=== PATIENT | female | born 1995 | race Caucasian/White ===

== ENCOUNTER 2017-02-13 08:19 | Emergency (ER) | payer SELFPAY ==
--- NOTE | 2017-02-13 08:35 | EDM.PDOC ---
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 By her dates she would be 6 weeks 1 day gestational age if (again please see below note). She has no gynecologic history or surgical history. She has had nausea but only one episode of vomiting and she's been tolerating fluids. She has no upper abdominal pain diarrhea fevers chills chest pain or shortness of breath. She has no urinary symptoms and has no STD history. She says she is having lower abdominal cramping that started this morning and she is concerned. She has not established herself with an OB M.D. Review of systems: As per history of present illness and below otherwise all systems reviewed and negative. Past medical history: As per history of present illness and as reviewed below otherwise noncontributory. Surgical history: As per history of present illness and as reviewed below otherwise noncontributory. Social history: No reported history of drug or alcohol abuse. Family history: As per history of present illness and as reviewed below otherwise noncontributory. Physical exam: Gen.: Well-developed well-nourished female who is somewhat tearful in the room but is nontoxic and vital signs were noted by me. HEENT: Atraumatic, normocephalic, , negative for conjunctival pallor or scleral icterus, mucous membranes moist, throat clear, neck supple, nontender, trachea midline. Lungs: Clear to auscultation, breath sounds equal bilaterally, chest nontender. Heart: S1S2, regular rate and rhythm no overt murmurs Abdomen: Soft, nondistended, nontender. Negative for masses or hepatosplenomegaly. Negative for costovertebral tenderness. Pelvis: Stable nontender. Genitourinary: External genitalia are within normal limits, there is a small amount of darkish colored blood in the vault without tissue and the cervix is visually closed. Uterus is bulky and somewhat tender on palpation and appropriate for gestational age and there is no adnexal tenderness or masses appreciated. Exam was somewhat difficult as the patient was very uncomfortable and had difficulty relaxing. Rectal: Deferred. Extremities: Atraumatic, negative for cords or calf pain. Neurovascular unremarkable. Neuro: Awake, alert, oriented. Cranial nerves II through XII unremarkable. Cerebellum unremarkable. Motor and sensory unremarkable throughout. Exam nonfocal. Diagnostics: CBC serum quantitative hCG ABO Rh UA urine culture if indicated ultrasound Therapeutics: I discussed with the patient her serum quantitative hCG which is less than 1.2 and the negative ultrasound. I informed her that she is not and that I can explain her positive urine test that she had at home yesterday nor her complaints of the nausea and cramping. She is confused because she feels that she has had all the symptoms of and she is not quite comprehending that the serum level of 0 indicates no . In my research on the computer I saw the same patient in 2014 with a similar presentation and a negative blood test at that time. I advised her that this. Will be heavier than usual and that she should follow up with gynecology to discuss all of her concerns and for reevaluation. Impression: Vaginal bleeding, menstrual cycle irregularity Definitive disposition and diagnosis as appropriate pending reevaluation and review of above. Bilateral Lower Abdominal Pain Score (Numeric/FACES): 8 - Related Data Allergies Allergy/AdvReac Type Severity Reaction Status Date / Time coconut Allergy Hives Verified 02/13/17 08:41 Home Meds: Home Meds Albuterol [Ventolin HFA] 2 puff INH Q4H PRN 02/12/15 [History] Past Medical History - Past Health History Medical/Surgical History: Denies Medical/Surgical History HEENT History: Reports: None Other HEENT History: sore feeling on the throat from 3 days ago Cardiovascular History: Reports: None Respiratory History: Reports: None Gastrointestinal History: Reports: None Genitourinary History: Reports: None REVENUE STAMPER History: Reports: None Musculoskeletal History: Reports: None Neurological History: Reports: None Psychiatric History: Reports: None Endocrine/Metabolic History: Reports: None Hematologic History: Reports: None Immunologic History: Reports: None Oncologic (Cancer) History: Reports: None Dermatologic History: Reports: None - Infectious Disease History Infectious Disease History: Reports: None - Past Surgical History HEENT Surgical History: Reports: None Social & Family History - Family History Family Medical History: Noncontributory - Tobacco Use Smoking Status *Q: Current Every Day Smoker Years of Tobacco use: 4 Packs/Tins Daily: 0.5 Second Hand Smoke Exposure: No - Alcohol Use Days Per Week of Alcohol Use: 0 Number of Drinks Per Day: 2 Total Drinks Per Week: 0 - Recreational Drug Use Recreational Drug Use: No ED ROS GENERAL - Review of Systems Review Of Systems: ROS reveals no pertinent complaints other than HPI. ED EXAM, GENERAL - Physical Exam Exam: See Below (See dictation) Course - Vital Signs Last Recorded V/S: Last Vital Signs Temp 36.1 C 02/13/17 09:54 Pulse 64 02/13/17 09:54 Resp 18 02/13/17 09:54 BP 99/63 02/13/17 09:54 Pulse Ox 98 02/13/17 09:54 - Orders/Labs/Meds Orders: Active Orders 24 hr Category Date Time Status Transvaginal Non OB [US] Stat Exams 02/13/17 09:26 Taken Labs: Laboratory Tests 02/13/17 02/13/17 02/13/17 Range/Units 08:42 08:42 08:42 WBC 7.91 (4.0-11.0) K/uL RBC 4.42 (4.30-5.90) M/uL Hgb 14.3 (12.0-16.0) g/dL Hct 42.8 (36.0-46.0) % MCV 96.8 (80.0-98.0) fL MCH 32.4 H (27.0-32.0) pg MCHC 33.4 (31.0-37.0) g/dL RDW Std Deviation 45.7 (28.0-62.0) fl RDW Coeff of Dereck 13 (11.0-15.0) % Plt Count 211 (150-400) K/uL MPV 10.90 (7.40-12.00) fL Neut % (Auto) 53.2 (48.0-80.0) % Lymph % (Auto) 37.4 (16.0-40.0) % [place] % (Auto) 7.7 (0.0-15.0) % Eos % (Auto) 1.4 (0.0-7.0) % Baso % (Auto) 0.3 (0.0-1.5) % Neut # (Auto) 4.2 (1.4-5.7) K/uL Lymph # (Auto) 3.0 H (0.6-2.4) K/uL [place] # (Auto) 0.6 (0.0-0.8) K/uL Eos # (Auto) 0.1 (0.0-0.7) K/uL Baso # (Auto) 0.0 (0.0-0.1) K/uL Nucleated RBC % 0.0 /100WBC Nucleated RBCs # 0 K/uL HCG, Quant < 1.2 mIU/mL Urine Color Urine Appearance Urine pH (5.0-8.0) Ur Specific [place] (1.001-1.035) Urine Protein (NEGATIVE) mg/dL Urine Glucose (UA) (NEGATIVE) mg/dL Urine Ketones (NEGATIVE) mg/dL Urine Occult Blood (NEGATIVE) Urine Nitrite (NEGATIVE) Urine Bilirubin (NEGATIVE) Urine Urobilinogen (<2.0) EU/dL Ur Leukocyte Esterase (NEGATIVE) Urine RBC (0-2/HPF) Urine WBC (0-5/HPF) Ur Epithelial Cells (NONE-FEW) Urine Bacteria (NEGATIVE) Blood Type B POSITIVE 02/13/17 Range/Units 08:46 WBC (4.0-11.0) K/uL RBC (4.30-5.90) M/uL Hgb (12.0-16.0) g/dL Hct (36.0-46.0) % MCV (80.0-98.0) fL MCH (27.0-32.0) pg MCHC (31.0-37.0) g/dL RDW Std Deviation (28.0-62.0) fl RDW Coeff of Dereck (11.0-15.0) % Plt Count (150-400) K/uL MPV (7.40-12.00) fL Neut % (Auto) (48.0-80.0) % Lymph % (Auto) (16.0-40.0) % [place] % (Auto) (0.0-15.0) % Eos % (Auto) (0.0-7.0) % Baso % (Auto) (0.0-1.5) % Neut # (Auto) (1.4-5.7) K/uL Lymph # (Auto) (0.6-2.4) K/uL [place] # (Auto) (0.0-0.8) K/uL Eos # (Auto) (0.0-0.7) K/uL Baso # (Auto) (0.0-0.1) K/uL Nucleated RBC % /100WBC Nucleated RBCs # K/uL HCG, Quant mIU/mL Urine Color YELLOW Urine Appearance CLEAR Urine pH 6.0 (5.0-8.0) Ur Specific [place] >= 1.030 (1.001-1.035) Urine Protein NEGATIVE (NEGATIVE) mg/dL Urine Glucose (UA) NEGATIVE (NEGATIVE) mg/dL Urine Ketones NEGATIVE (NEGATIVE) mg/dL Urine Occult Blood LARGE H (NEGATIVE) Urine Nitrite NEGATIVE (NEGATIVE) Urine Bilirubin NEGATIVE (NEGATIVE) Urine Urobilinogen 0.2 (<2.0) EU/dL Ur Leukocyte Esterase NEGATIVE (NEGATIVE) Urine RBC 8-10 (0-2/HPF) Urine WBC 0-1 (0-5/HPF) Ur Epithelial Cells RARE (NONE-FEW) Urine Bacteria NOT SEEN (NEGATIVE) Blood Type Departure - Departure Time of Disposition: 10:14 Disposition: Home, Self-Care 01 Condition: Good Clinical Impression: Vaginal bleeding, Menstrual cycle problem - Discharge Information Forms: ED Department Discharge Additional Instructions: The following information is given to patients seen in the emergency department who are being discharged to home. This information is to outline your options for follow-up care. We provide all patients seen in our emergency department with a follow-up referral. The need for follow-up, as well as the timing and circumstances, are variable depending upon the specifics of your emergency department visit. If you don't have a primary care physician on staff, we will provide you with a referral. We always advise you to contact your personal physician following an emergency department visit to inform them of the circumstance of the visit and for follow-up with them and/or the need for any referrals to a consulting specialist. The emergency department will also refer you to a specialist when appropriate. This referral assures that you have the opportunity for followup care with a specialist. All of these measure are taken in an effort to provide you with optimal care, which includes your followup. Under all circumstances we always encourage you to contact your private physician who remains a resource for coordinating your care. When calling for followup care, please make the office aware that this follow-up is from your recent emergency room visit. If for any reason you are refused follow-up, please contact the [facility] emergency department at and ask to speak to the emergency department charge nurse. [facility] [address] [facility] [address] [place] [address] Push hydration and rest. Expect that this menstrual cycle will be heavier than others because you are 2 weeks late. Please call and contact the women's health clinic tomorrow for follow-up appointment this week as we discussed and return to ER as needed and as discussed - My Orders Last 24 Hours: My Active Orders 02/13/17 09:26 Transvaginal Non OB [US] Stat - Assessment/Plan Last 24 Hours: My Active Orders 02/13/17 09:26 Transvaginal Non OB [US] Stat
[2017-02-13 10:27] VITALS: BP 105/63
--- NOTE | 2017-02-14 14:39 | US ---
EXAM DATE: 02/13/17 PATIENT'S AGE: 21 Patient: PATRICIA RODRIGUEZ Facility: [place], [place] Site . Site : 1995 Study: US Pelvis [id number]/6/2017 9:57:41 AM Ordering Physician: Ramesh Thao Final Report: HISTORY: Cramping and bleeding. Technique: Transvaginal pelvic ultrasound with color spectral Doppler. Findings: The uterus measures 3.4 x 5.2 x 7.9 cm. The myometrium is homogeneous. The endometrium measures 6 mm. No intrauterine gestational sac is seen. The right ovary measures approximately 2.2 x 2.3 x 3.4 cm. The left ovary measures 2.3 x 1.4 x 3.2 cm. Small follicles are seen in each ovary. Slightly hyperechoic nodule is seen in the right ovary measuring 0.9 x 1.2 cm possibly hemorrhagic cyst. A trace of fluid free fluid is seen. Impression: 1. No intrauterine gestational sac is seen. Clinical correlation with serial HCG levels as necessary is recommended. 2. Probable small hemorrhagic cyst in the right ovary. Dictated by Antonio Deng MD @ Feb 13 2017 10:02AM (Electronic Signature) Report Signed by Proxy. JASSI
== END 2017-02-13 10:24 | disposition home or self-care (01) ==
LOC: MW.ED 08:19
DX: N93.9 Abnormal uterine and vaginal bleeding, unspecified (principal); N92.6 Irregular menstruation, unspecified; F17.210 Nicotine dependence, cigarettes, uncomplicated
CPT/HCPCS: 36415; 76830; 76830-26; 81001; 84702; 85025; 86900; 86901; 99283; 99284-25

== ENCOUNTER 2018-09-03 22:32 | Inpatient (IN) | payer MEDICAID ==
[2018-09-03] MEDS ORDERED: Ondansetron 4 MG/2 ML SDV IVPUSH PRN (22:57)
[2018-09-03] MEDS ORDERED: Nalbuphine 10 MG/1 ML Vial IVPUSH PRN (22:57)
[2018-09-03] MEDS ORDERED: Methylergonovine 0.2 MG/1 ML Amp IM PRN (22:57)
[2018-09-03] MEDS ORDERED: Tranexamic Acid 1,000 MG in Sodium Chloride 0.9% 100 ML IV PRN (22:57)
[2018-09-03] MEDS ORDERED: Water For Irrigation,Sterile 1,000 ML Container IRR PRN (22:57)
[2018-09-03] MEDS ORDERED: Misoprostol 200 MCG Tab PO PRN (22:57)
[2018-09-03] MEDS ORDERED: Butorphanol 1 MG/ML SDV IVPUSH PRN (22:57)
[2018-09-03] MEDS ORDERED: Sodium Chloride 0.9% 2.5 ML Syringe FLUSH PRN (22:57)
[2018-09-03] MEDS ORDERED: Sodium Chloride 0.9% 10 ML Syringe FLUSH PRN (22:57)
[2018-09-03] MEDS ORDERED: Carboprost Tromethamine 250 MCG/1 ML Amp IM PRN (22:57)
[2018-09-03] MEDS ORDERED: Lidocaine 1% 50 ML MDV INJECT PRN (22:57)
[2018-09-03] MEDS ORDERED: Lactated Ringers 1,000 ML IV SCH ×2 (23:00)
[2018-09-03] MEDS ORDERED: Oxytocin/0.9 % Sodium Chloride 30 UNIT/500 ML BAG IV SCH (23:00)
[2018-09-03] MEDS ORDERED: Morphine 10 MG/ML Syringe ONE (23:37)
[2018-09-03] MEDS: Morphine 10 MG/ML Syringe IVPUSH PRN (23:39)
--- NOTE | 2018-09-03 23:39 | PCM.LDHP ---
L&D History of Present Illness - General Date of Service: 09/03/18 Admit Problem/Dx: Patient Status Order with Admit Dx/Problem 09/03/18 22:40 Patient Status [ADT] Routine 09/03/18 22:58 Patient Status [ADT] Routine Admission Diagnosis/Problem Admission Diagnosis/Problem - planned Source of Information: Patient History Limitations: Reports: No Limitations - History of Present Illness Improves with: Reports: None Worsens with: Reports: None Associated Symptoms: Reports: N - Related Data Allergies/Adverse Reactions: Allergies Allergy/AdvReac Type Severity Reaction Status Date / Time coconut Allergy Hives Verified 02/08/18 15:37 Home Medications: Home Meds Albuterol [Ventolin HFA] 2 puff INH Q4H PRN 02/12/15 [History] Past Medical History - Past Health History Medical/Surgical History: Denies Medical/Surgical History HEENT History: Reports: None Other HEENT History: sore feeling on the throat from 3 days ago Cardiovascular History: Reports: None Respiratory History: Reports: None Gastrointestinal History: Reports: None Genitourinary History: Reports: None SPOT WASHER History: Reports: None Musculoskeletal History: Reports: None Neurological History: Reports: None Psychiatric History: Reports: None Endocrine/Metabolic History: Reports: None Hematologic History: Reports: None Immunologic History: Reports: None Oncologic (Cancer) History: Reports: None Dermatologic History: Reports: None - Infectious Disease History Infectious Disease History: Reports: None - Past Surgical History HEENT Surgical History: Reports: None Social & Family History - Family History Family Medical History: Noncontributory - Caffeine Use Caffeine Use: Reports: Coffee, Energy Drinks, Soda, Tea H&P Review of Systems - Review of Systems: Review Of Systems: See Below General: Reports: No Symptoms HEENT: Reports: No Symptoms Pulmonary: Reports: No Symptoms Cardiovascular: Reports: No Symptoms Gastrointestinal: Reports: No Symptoms Genitourinary: Reports: No Symptoms Musculoskeletal: Reports: No Symptoms Skin: Reports: No Symptoms Psychiatric: Reports: No Symptoms Neurological: Reports: No Symptoms Hematologic/Lymphatic: Reports: No Symptoms Immunologic: Reports: No Symptoms L&D Exam - Exam Exam: See Below - OB Specific Fundal Height In cm: 23 Contraction Intensity: Moderate Movement: Active - Olivier Score Olivier Score Cervix Position: Anterior Olivier Score Consistency: Soft Olivier Score Effacement: >80% Olivier Score Dilation: > 5 cm Olivier Score 's Station: +1, +2 Olivier Score Total: 13 - Exam General: Alert, Oriented HEENT: PERRLA, Conjunctiva Clear, EACs Clear, EOMI, Hearing Intact, Mucosa Moist & [place], Nares Patent, Normal Nasal Septum, Posterior Pharynx Clear, TMs Clear Neck: Supple, Trachea Midline Lungs: Clear to Auscultation, Normal Respiratory Effort Cardiovascular: Regular Rate, Regular Rhythm GI/Abdominal Exam: Normal Bowel Sounds, Soft, Non-Tender, No Organomegaly, No Distention, No Abnormal Bruit, No Mass, Pelvis Stable Rectal Exam: Normal Exam, Normal Rectal Tone Genitourinary: Normal external exam, Normal bimanual exam, Normal speculum exam Back Exam: Normal Inspection, Full Range of Motion Extremities: Normal Inspection, Normal Range of Motion, Non-Tender, No Pedal Edema, Normal Capillary Refill Skin: Warm, Dry, Intact Neurological: Cranial Nerves Intact, Reflexes Equal Bilateral Psychiatric: Alert, Normal Affect, Normal Mood - Patient Data Lab Results Last 24 hrs: Laboratory Results - last 24 hr 09/03/18 Range/Units 23:11 WBC 14.54 H (4.0-11.0) K/uL RBC 3.68 L (4.30-5.90) M/uL Hgb 11.9 L (12.0-16.0) g/dL Hct 34.1 L (36.0-46.0) % MCV 92.7 (80.0-98.0) fL MCH 32.3 H (27.0-32.0) pg MCHC 34.9 (31.0-37.0) g/dL RDW Std Deviation 43.0 (28.0-62.0) fl RDW Coeff of Dereck 13 (11.0-15.0) % Plt Count 152 (150-400) K/uL MPV 11.70 (7.40-12.00) fL Nucleated RBC % 0.0 /100WBC Nucleated RBCs # 0 K/uL Result Diagrams: 09/03/18 23:11 Problem List Initiated/Reviewed/Updated: Yes Orders Last 24hrs: Active Orders 24 hr Category Date Time Status Patient Status [ADT] Routine ADT 09/03/18 22:58 Active Heart Tones [RC] CONTINUOUS Care 09/03/18 22:58 Active Non Stress Test [RC] PER UNIT ROUTINE Care 09/03/18 22:48 Active Non Stress Test [RC] PER UNIT ROUTINE Care 09/03/18 22:58 Active May Shower [RC] ASDIRECTED Care 09/03/18 22:58 Active Notify Provider [RC] PRN Care 09/03/18 22:58 Active Up ad Marian [RC] ASDIRECTED Care 09/03/18 22:48 Active Up ad Marian [RC] ASDIRECTED Care 09/03/18 22:58 Active Vaginal Exam [RC] Click to Edit Care 09/03/18 22:48 Active Vaginal Exam [RC] PRN Care 09/03/18 22:58 Active Vital Signs [RC] PER UNIT ROUTINE Care 09/03/18 22:48 Active Regular Diet [DIET] Diet 09/03/18 Breakfast Active TYPE AND SCREEN [BBK] Stat Lab 09/03/18 23:11 Received Butorphanol [Stadol] Med 09/03/18 22:57 Active 1 mg IVPUSH Q1H PRN Carboprost Tromethamine [Hemabate DS] Med 09/03/18 22:57 Active 250 mcg IM ASDIRECTED PRN Lactated Ringers [Ringers, Lactated] 1,000 ml Med 09/03/18 23:00 Active IV ASDIRECTED Lactated Ringers [Ringers, Lactated] 1,000 ml Med 09/03/18 23:00 Active IV ASDIRECTED Lidocaine 1% [Xylocaine 1%] Med 09/03/18 22:57 Active 50 ml INJECT ONETIME PRN Methylergonovine [Methergine] Med 09/03/18 22:57 Active 0.2 mg IM ASDIRECTED PRN Morphine Med 09/03/18 23:32 Ordered 4 - 8 mg IVPUSH Q2H PRN Nalbuphine [Nubain] Med 09/03/18 22:57 Active 10 mg IVPUSH Q1H PRN Ondansetron [Zofran] Med 09/03/18 22:57 Active 4 mg IVPUSH Q6H PRN Oxytocin/0.9 % Sodium Chloride [Oxytocin 30 Unit/500 ML Med 09/03/18 23:00 Active -NS] 30 unit in 500 ml IV TITRATE Sodium Chloride 0.9% [Saline Flush] Med 09/03/18 22:57 Active 10 ml FLUSH ASDIRECTED PRN Sodium Chloride 0.9% [Saline Flush] Med 09/03/18 22:57 Active 2.5 ml FLUSH ASDIRECTED PRN Tranexamic Acid [Cyklokapron] 1,000 mg Med 09/03/18 22:57 Active Sodium Chloride 0.9% [Normal Saline] 100 ml IV ONETIME Water For Irrigation,Sterile [Sterile Water for Med 09/03/18 22:57 Active Irrigation] 1,000 ml IRR ASDIRECTED PRN miSOPROStol [Cytotec] Med 09/03/18 22:57 Active 200 mcg PO ONETIME PRN Scalp Electrode [WOMSER] Per Unit Routine Oth 09/03/18 22:58 Ordered Peripheral IV Insertion Adult [OM.PC] Routine Oth 09/03/18 22:57 Ordered Peripheral IV Insertion Adult [OM.PC] Routine Oth 09/03/18 22:58 Ordered Resuscitation Status Routine Resus Stat 09/03/18 22:48 Ordered Medication Orders Butorphanol Tartrate (Stadol) 1 mg IVPUSH Q1H PRN PRN Reason: Pain Carboprost Tromethamine (Hemabate Ds) 250 mcg IM ASDIRECTED PRN PRN Reason: Post Hemorrhage Tranexamic Acid 1,000 mg/ (Sodium Chloride) 110 mls @ 660 mls/hr IV ONETIME PRN PRN Reason: Bleeding Lactated Ringer's (Ringers, Lactated) 1,000 mls @ 150 mls/hr IV ASDIRECTED ERIK Oxytocin/Sodium Chloride (Oxytocin 30 Unit/500 Ml-Ns) 30 unit in 500 mls @ 999 mls/hr IV TITRATE ERIK Lactated Ringer's (Ringers, Lactated) 1,000 mls @ 125 mls/hr IV ASDIRECTED ERIK Lidocaine HCl (Xylocaine 1%) 50 ml INJECT ONETIME PRN PRN Reason: Laceration repair Methylergonovine Maleate (Methergine) 0.2 mg IM ASDIRECTED PRN PRN Reason: Post Hemorrhage Misoprostol (Cytotec) 200 mcg PO ONETIME PRN PRN Reason: Post Hemorrhage Morphine Sulfate (Morphine) 4 - 8 mg IVPUSH Q2H PRN PRN Reason: Pain Nalbuphine HCl (Nubain) 10 mg IVPUSH Q1H PRN PRN Reason: Pain (severe 7-10) Ondansetron HCl (Zofran) 4 mg IVPUSH Q6H PRN PRN Reason: Nausea/Vomiting Sodium Chloride (Saline Flush) 10 ml FLUSH ASDIRECTED PRN PRN Reason: Keep Vein Open Sodium Chloride (Saline Flush) 2.5 ml FLUSH ASDIRECTED PRN PRN Reason: Keep Vein Open Sterile Water (Sterile Water For Irrigation) 1,000 ml IRR ASDIRECTED PRN PRN Reason: delivery Assessment/Plan Comment:: Pt fetus have multiple congental anamoles with Hydropres. in active labor. ther will be necessitation for the fetus.
[2018-09-04] MEDS: Morphine 10 MG/ML Syringe IVPUSH PRN (01:47)
[2018-09-04] MEDS ORDERED: Lanolin 100% Cream 7 GM Tube TOP PRN (05:04)
[2018-09-04] MEDS ORDERED: Witch Hazel Medicated Pads 40/Jar TOP PRN (05:04)
[2018-09-04] MEDS ORDERED: Bisacodyl 10 MG Supp RECTAL PRN (05:04)
[2018-09-04] MEDS ORDERED: Acetaminophen 500 MG Tab PO PRN ×2 (05:04)
[2018-09-04] MEDS ORDERED: Benzocaine/Menthol 20%-0.5% Spray 78 GM Cannister TOP PRN (05:04)
[2018-09-04] MEDS ORDERED: Ibuprofen 400 MG Tab PO PRN (05:04)
[2018-09-04] MEDS ORDERED: Ibuprofen 800 MG Tab PO PRN (05:04)
[2018-09-04] MEDS ORDERED: Docusate Sodium 100 MG Cap PO PRN (05:04)
[2018-09-04] MEDS ORDERED: oxyCODONE 5 MG Tab PO PRN (05:04)
--- NOTE | 2018-09-04 09:06 | PCM.PNPP ---
- General Info Date of Service: 09/04/18 Functional Status: Reports: Pain Controlled - Review of Systems General: Reports: No Symptoms HEENT: Reports: No Symptoms Pulmonary: Reports: No Symptoms Cardiovascular: Reports: No Symptoms Gastrointestinal: Reports: No Symptoms Genitourinary: Reports: No Symptoms Musculoskeletal: Reports: No Symptoms Skin: Reports: No Symptoms Neurological: Reports: No Symptoms Psychiatric: Reports: No Symptoms - General Info Date of Service: 09/04/18 - Patient Data Weight - Most Recent: 58.967 kg Lab Results - Last 24 Hours: Laboratory Results - last 24 hr 09/03/18 09/03/18 Range/Units 23:11 23:11 WBC 14.54 H (4.0-11.0) K/uL RBC 3.68 L (4.30-5.90) M/uL Hgb 11.9 L (12.0-16.0) g/dL Hct 34.1 L (36.0-46.0) % MCV 92.7 (80.0-98.0) fL MCH 32.3 H (27.0-32.0) pg MCHC 34.9 (31.0-37.0) g/dL RDW Std Deviation 43.0 (28.0-62.0) fl RDW Coeff of Dereck 13 (11.0-15.0) % Plt Count 152 (150-400) K/uL MPV 11.70 (7.40-12.00) fL Nucleated RBC % 0.0 /100WBC Nucleated RBCs # 0 K/uL Blood Type B POSITIVE Antibody Screen NEGATIVE Med Orders - Current: Current Medications Acetaminophen (Tylenol Extra Strength) 500 mg PO Q4H PRN PRN Reason: Pain Acetaminophen (Tylenol Extra Strength) 1,000 mg PO Q4H PRN PRN Reason: Pain Last Admin: 09/04/18 05:19 Dose: 1,000 mg Benzocaine/Menthol (Dermoplast Pain Relief 20%-0.5% [place]) 78 gm TOP ASDIRECTED PRN PRN Reason: Perineal Comfort Measure Bisacodyl (Dulcolax) 10 mg RECTAL ONETIME PRN PRN Reason: Constipation Butorphanol Tartrate (Stadol) 1 mg IVPUSH Q1H PRN PRN Reason: Pain Carboprost Tromethamine (Hemabate Ds) 250 mcg IM ASDIRECTED PRN PRN Reason: Post Hemorrhage Docusate Sodium (Colace) 100 mg PO BID PRN PRN Reason: Constipation Emollient Ointment (Lansinoh Hpa) 0 gm TOP ASDIRECTED PRN PRN Reason: Sore Nipples Tranexamic Acid 1,000 mg/ (Sodium Chloride) 110 mls @ 660 mls/hr IV ONETIME PRN PRN Reason: Bleeding Lactated Ringer's (Ringers, Lactated) 1,000 mls @ 150 mls/hr IV ASDIRECTED ERIK Oxytocin/Sodium Chloride (Oxytocin 30 Unit/500 Ml-Ns) 30 unit in 500 mls @ 999 mls/hr IV TITRATE ERIK Last Admin: 09/04/18 01:44 Dose: 999 mls/hr Lactated Ringer's (Ringers, Lactated) 1,000 mls @ 125 mls/hr IV ASDIRECTED ERIK Ibuprofen (Motrin) 400 mg PO Q4H PRN PRN Reason: Pain Ibuprofen (Motrin) 800 mg PO Q6H PRN PRN Reason: Pain Lidocaine HCl (Xylocaine 1%) 50 ml INJECT ONETIME PRN PRN Reason: Laceration repair Methylergonovine Maleate (Methergine) 0.2 mg IM ASDIRECTED PRN PRN Reason: Post Hemorrhage Misoprostol (Cytotec) 200 mcg PO ONETIME PRN PRN Reason: Post Hemorrhage Morphine Sulfate (Morphine) 4 - 8 mg IVPUSH Q2H PRN PRN Reason: Pain Last Admin: 09/04/18 01:47 Dose: 5 mg Nalbuphine HCl (Nubain) 10 mg IVPUSH Q1H PRN PRN Reason: Pain (severe 7-10) Last Admin: 09/03/18 23:19 Dose: 10 mg Ondansetron HCl (Zofran) 4 mg IVPUSH Q6H PRN PRN Reason: Nausea/Vomiting Oxycodone HCl (Oxycodone) 5 mg PO Q2H PRN PRN Reason: Pain Last Admin: 09/04/18 05:20 Dose: 5 mg Sodium Chloride (Saline Flush) 10 ml FLUSH ASDIRECTED PRN PRN Reason: Keep Vein Open Sodium Chloride (Saline Flush) 2.5 ml FLUSH ASDIRECTED PRN PRN Reason: Keep Vein Open Sterile Water (Sterile Water For Irrigation) 1,000 ml IRR ASDIRECTED PRN PRN Reason: delivery Roberto Zavala ([place]) 1 pad TOP ASDIRECTED PRN PRN Reason: comfort care Discontinued Medications Morphine Sulfate (Morphine) Confirm Administered Dose 10 mg .ROUTE .STK-MED ONE Stop: 09/03/18 23:38 - Interaction Disposition, : Not Applicable Support Person: Significant Other - Exam General: Alert, Oriented HEENT: Pupils Equal Neck: Supple Lungs: Clear to Auscultation, Normal Respiratory Effort Cardiovascular: Regular Rate, Regular Rhythm GI/Abdominal Exam: Normal Bowel Sounds, Soft, Non-Tender, No Organomegaly, No Distention, No Abnormal Bruit, No Mass, Pelvis Stable Extremities: Normal Inspection, Normal Range of Motion, Non-Tender, No Pedal Edema, Normal Capillary Refill Skin: Warm, Dry, Intact Wound/Incisions: Healing Well Neurological: No New Focal Deficit Psy/Mental Status: Alert, Normal Affect, Normal Mood - Problem List Review Problem List Initiated/Reviewed/Updated: Yes - My Orders Last 24 Hours: My Active Orders 09/03/18 22:48 Up ad Marian [RC] ASDIRECTED Vital Signs [RC] PER UNIT ROUTINE Resuscitation Status Routine 09/03/18 22:57 Butorphanol [Stadol] 1 mg IVPUSH Q1H PRN Carboprost Tromethamine [Hemabate DS] 250 mcg IM ASDIRECTED PRN Lidocaine 1% [Xylocaine 1%] 50 ml INJECT ONETIME PRN Methylergonovine [Methergine] 0.2 mg IM ASDIRECTED PRN Nalbuphine [Nubain] 10 mg IVPUSH Q1H PRN Ondansetron [Zofran] 4 mg IVPUSH Q6H PRN Sodium Chloride 0.9% [Saline Flush] 10 ml FLUSH ASDIRECTED PRN Sodium Chloride 0.9% [Saline Flush] 2.5 ml FLUSH ASDIRECTED PRN Tranexamic Acid [Cyklokapron] 1,000 mg Sodium Chloride 0.9% [Normal Saline] 100 ml IV ONETIME Water For Irrigation,Sterile [Sterile Water for Irrigation] 1,000 ml IRR ASDIRECTED PRN miSOPROStol [Cytotec] 200 mcg PO ONETIME PRN Peripheral IV Insertion Adult [OM.PC] Routine 09/03/18 22:58 Notify Provider [RC] PRN Scalp Electrode [WOMSER] Per Unit Routine Peripheral IV Insertion Adult [OM.PC] Routine 09/03/18 23:00 Lactated Ringers [Ringers, Lactated] 1,000 ml IV ASDIRECTED Lactated Ringers [Ringers, Lactated] 1,000 ml IV ASDIRECTED Oxytocin/0.9 % Sodium Chloride [Oxytocin 30 Unit/500 ML-NS] 30 unit in 500 ml IV TITRATE 09/03/18 23:32 Morphine 4 - 8 mg IVPUSH Q2H PRN 09/04/18 05:04 Acetaminophen [Tylenol Extra Strength] 1,000 mg PO Q4H PRN Acetaminophen [Tylenol Extra Strength] 500 mg PO Q4H PRN Benzocaine/Menthol [Dermoplast Pain Relief 20%-0.5% [place]] 78 gm TOP ASDIRECTED PRN Bisacodyl [Dulcolax] 10 mg RECTAL ONETIME PRN Docusate Sodium [Colace] 100 mg PO BID PRN Ibuprofen [Motrin] 400 mg PO Q4H PRN Ibuprofen [Motrin] 800 mg PO Q6H PRN Lanolin [Lansinoh HPA] See Dose Instructions TOP ASDIRECTED PRN Witch Sally [Tucks] 1 pad TOP ASDIRECTED PRN oxyCODONE 5 mg PO Q2H PRN 09/04/18 05:05 Patient Status [ADT] Routine May Shower [RC] ASDIRECTED Up ad Marian [RC] ASDIRECTED Vital Signs [RC] PER UNIT ROUTINE Assess Lochia [WOMSER] Per Unit Routine Assess Uterine Involution [WOMSER] Per Unit Routine Peripheral IV Discontinue [OM.PC] Routine - Assessment Assessment:: The fetus is at 23 weeks because of multiple congenital anomalies. The patient accepted the face of her I convey my condolences to the patient and had her boyfriend. 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 in active labor. ther will be necessitation for the fetus.
--- NOTE | 2018-09-04 09:07 | PCM.DCSUM1 ---
Discharge Summary - Hospital Course Diagnosis: Stroke: No - Discharge Data Discharge Date: 09/04/18 Discharge Disposition: Home, Self-Care 01 Condition: Good - Patient Instructions Diet: Usual Diet as Tolerated Activity: As Tolerated - Discharge Plan Home Medications: Home Meds Albuterol [Ventolin HFA] 2 puff INH Q4H PRN 02/12/15 [History] Patient Handouts: Vaginal Delivery, Loss, Care After Referrals: [facility] [Outside] Lalit Miller MD [Physician] - 09/18/18 10:45 am - Discharge Summary/Plan Comment DC Time >30 min.: Yes - General Info Date of Service: 09/04/18 Functional Status: Reports: Pain Controlled - Review of Systems General: Reports: No Symptoms HEENT: Reports: No Symptoms Pulmonary: Reports: No Symptoms Cardiovascular: Reports: No Symptoms Gastrointestinal: Reports: No Symptoms Genitourinary: Reports: No Symptoms Musculoskeletal: Reports: No Symptoms Skin: Reports: No Symptoms Neurological: Reports: No Symptoms Psychiatric: Reports: No Symptoms - Patient Data Weight - Most Recent: 58.967 kg Lab Results - Last 24 hrs: Laboratory Results - last 24 hr 09/03/18 09/03/18 Range/Units 23:11 23:11 WBC 14.54 H (4.0-11.0) K/uL RBC 3.68 L (4.30-5.90) M/uL Hgb 11.9 L (12.0-16.0) g/dL Hct 34.1 L (36.0-46.0) % MCV 92.7 (80.0-98.0) fL MCH 32.3 H (27.0-32.0) pg MCHC 34.9 (31.0-37.0) g/dL RDW Std Deviation 43.0 (28.0-62.0) fl RDW Coeff of Dereck 13 (11.0-15.0) % Plt Count 152 (150-400) K/uL MPV 11.70 (7.40-12.00) fL Nucleated RBC % 0.0 /100WBC Nucleated RBCs # 0 K/uL Blood Type B POSITIVE Antibody Screen NEGATIVE Med Orders - Current: Current Medications Acetaminophen (Tylenol Extra Strength) 500 mg PO Q4H PRN PRN Reason: Pain Acetaminophen (Tylenol Extra Strength) 1,000 mg PO Q4H PRN PRN Reason: Pain Last Admin: 09/04/18 05:19 Dose: 1,000 mg Benzocaine/Menthol (Dermoplast Pain Relief 20%-0.5% [place]) 78 gm TOP ASDIRECTED PRN PRN Reason: Perineal Comfort Measure Bisacodyl (Dulcolax) 10 mg RECTAL ONETIME PRN PRN Reason: Constipation Butorphanol Tartrate (Stadol) 1 mg IVPUSH Q1H PRN PRN Reason: Pain Carboprost Tromethamine (Hemabate Ds) 250 mcg IM ASDIRECTED PRN PRN Reason: Post Hemorrhage Docusate Sodium (Colace) 100 mg PO BID PRN PRN Reason: Constipation Emollient Ointment (Lansinoh Hpa) 0 gm TOP ASDIRECTED PRN PRN Reason: Sore Nipples Tranexamic Acid 1,000 mg/ (Sodium Chloride) 110 mls @ 660 mls/hr IV ONETIME PRN PRN Reason: Bleeding Lactated Ringer's (Ringers, Lactated) 1,000 mls @ 150 mls/hr IV ASDIRECTED ERIK Oxytocin/Sodium Chloride (Oxytocin 30 Unit/500 Ml-Ns) 30 unit in 500 mls @ 999 mls/hr IV TITRATE ERIK Last Admin: 09/04/18 01:44 Dose: 999 mls/hr Lactated Ringer's (Ringers, Lactated) 1,000 mls @ 125 mls/hr IV ASDIRECTED [facility] Ibuprofen (Motrin) 400 mg PO Q4H PRN PRN Reason: Pain Ibuprofen (Motrin) 800 mg PO Q6H PRN PRN Reason: Pain Lidocaine HCl (Xylocaine 1%) 50 ml INJECT ONETIME PRN PRN Reason: Laceration repair Methylergonovine Maleate (Methergine) 0.2 mg IM ASDIRECTED PRN PRN Reason: Post Hemorrhage Misoprostol (Cytotec) 200 mcg PO ONETIME PRN PRN Reason: Post Hemorrhage Morphine Sulfate (Morphine) 4 - 8 mg IVPUSH Q2H PRN PRN Reason: Pain Last Admin: 09/04/18 01:47 Dose: 5 mg Nalbuphine HCl (Nubain) 10 mg IVPUSH Q1H PRN PRN Reason: Pain (severe 7-10) Last Admin: 09/03/18 23:19 Dose: 10 mg Ondansetron HCl (Zofran) 4 mg IVPUSH Q6H PRN PRN Reason: Nausea/Vomiting Oxycodone HCl (Oxycodone) 5 mg PO Q2H PRN PRN Reason: Pain Last Admin: 09/04/18 05:20 Dose: 5 mg Sodium Chloride (Saline Flush) 10 ml FLUSH ASDIRECTED PRN PRN Reason: Keep Vein Open Sodium Chloride (Saline Flush) 2.5 ml FLUSH ASDIRECTED PRN PRN Reason: Keep Vein Open Sterile Water (Sterile Water For Irrigation) 1,000 ml IRR ASDIRECTED PRN PRN Reason: delivery Witch Sally (Tucks) 1 pad TOP ASDIRECTED PRN PRN Reason: comfort care Discontinued Medications Morphine Sulfate (Morphine) Confirm Administered Dose 10 mg .ROUTE .VSHORE-MED ONE Stop: 09/03/18 23:38 - Exam General: Reports: Alert, Oriented HEENT: Reports: Pupils Equal, Pupils Reactive, EOMI, Mucous Membr. Moist/[place] Neck: Reports: Supple Lungs: Reports: Clear to Auscultation, Normal Respiratory Effort Cardiovascular: Reports: Regular Rate, Regular Rhythm GI/Abdominal Exam: Normal Bowel Sounds, Soft, Non-Tender, No Organomegaly, No Distention, No Abnormal Bruit, No Mass, Pelvis Stable (Female) Exam: Normal External Exam, Normal Speculum Exam, Normal Bimanual Exam Rectal (Female) Exam: Normal Exam, Normal Rectal Tone Back Exam: Reports: Normal Inspection, Full Range of Motion Extremities: Normal Inspection, Normal Range of Motion, Non-Tender, No Pedal Edema, Normal Capillary Refill Skin: Reports: Warm, Dry, Intact Wound/Incisions: Reports: Healing Well Neurological: Reports: No New Focal Deficit Psy/Mental Status: Reports: Alert, Normal Affect, Normal Mood
[2018-09-04] MEDS ORDERED: diphenhydrAMINE 50 MG Cap PO ONE (09:56)
--- NOTE | 2018-09-08 12:34 | OR ---
SURGEON: Lalit Miller MD DATE OF PROCEDURE: 09/04/2018 Ms. Almanzar is a 22-year-old patient. She is 23 plus 3 . Baby have multiple congenital anomalies, it was confirmed by ultrasound and confirmed by consultation with perinatologist in [place], [place]. The patient presented into Labor and Delivery in active labor. At the time of the presentation, she was dilated to 8 cm with bulging bag of water, and the patient understands that her have multiple congenital anomalies and based on the advice that we have given her and advice from the perinatologist, the patient has elected not to do any resuscitation for the baby. The patient has progressed without any problem and she accomplished normal spontaneous vaginal delivery. The fetus had a heart rate and was breathing and lived for 2-1/2 hours and then spontaneously without any problem. The placenta delivered spontaneous, complete, and intact without any problem. Estimated blood loss was 300 mL. There was no tear. There is no laceration. The patient in good general condition and good spirit after the delivery. STEFANY / VESTA /[id number]
== END 2018-09-04 12:10 | disposition home or self-care (01) | DRG 807 ==
LOC: MW.OBCHECK 22:32 → MW.OB 22:34 → MW.OBCHECK 22:58 → MW.OB 22:58 → OBSVTOIN 09-04 05:05
PROVIDERS: ADMIT Obstetrics & Gynecology; ATTEND Obstetrics & Gynecology
PROC: 10E0XZZ Delivery of Products of Conception, External Approach (ICD-10-PCS; principal; 2018-09-04)
DX: O35.9XX0 Maternal care for (suspected) fetal abnormality and damage, unspecified, not applicable or unspecified (principal); Z37.0 Single live birth; O35.0XX0 Maternal care for (suspected) central nervous system malformation in fetus, not applicable or unspecified; Z3A.23 23 weeks gestation of pregnancy; Z91.018 Allergy to other foods
CPT/HCPCS: 59025; 59409; 85027; 86850; 86900; 86901; 88307; A9270-GY; J2270; J2300; J2590

== ENCOUNTER 2019-08-17 08:26 | Emergency (ER) | payer SELFPAY ==
[2019-08-17] MEDS ORDERED: Albuterol/Ipratropium 3.0-0.5 MG/3 ML Neb Soln NEB ONE (08:35)
--- NOTE | 2019-08-17 08:40 | EDM.PDOC ---
ED HPI GENERAL MEDICAL PROBLEM - General Chief Complaint: Respiratory Problem Stated Complaint: CHEST PRESSURE Time Seen by Provider: 08/17/19 08:38 Source of Information: Reports: Patient - History of Present Illness INITIAL COMMENTS - FREE TEXT/NARRATIVE: HISTORY AND PHYSICAL: History of present illness: [cough for one week increasing in severity, +smoke hx, intermittent fever and chest tightness after cough, no CP mcneil d palp, no association with diaphoresis or or radiating pain to arm neck or jaw ] Review of systems: As per history of present illness and below otherwise all systems reviewed and negative. Past medical history: As per history of present illness and as reviewed below otherwise noncontributory. Surgical history: As per history of present illness and as reviewed below otherwise noncontributory. Social history: No reported history of drug or alcohol abuse. Family history: As per history of present illness and as reviewed below otherwise noncontributory. Physical exam: HEENT: Atraumatic, normocephalic, pupils reactive, negative for conjunctival pallor or scleral icterus, mucous membranes moist, throat clear, neck supple, nontender, trachea midline. Lungs: diminished throughout initially, Clear to auscultation, breath sounds equal bilaterally, chest nontender. post treatment Heart: S1S2, regular, negative for clicks, rubs, or JVD. Abdomen: Soft, nondistended, nontender. Negative for masses or hepatosplenomegaly. Negative for costovertebral tenderness. Pelvis: Stable nontender. Genitourinary: Deferred. Rectal: Deferred. Extremities: Atraumatic, negative for cords or calf pain. Neurovascular unremarkable. Neuro: Awake, alert, oriented. Cranial nerves II through XII unremarkable. Cerebellum unremarkable. Motor and sensory unremarkable throughout. Exam nonfocal. Diagnostics: [flu chest hcg ] Therapeutics: [duoneb ] Impression: [bronchitis] Definitive disposition and diagnosis as appropriate pending reevaluation and review of above. chest Pain Score (Numeric/FACES): 5 - Related Data Allergies Allergy/AdvReac Type Severity Reaction Status Date / Time coconut Allergy Hives Verified 08/17/19 08:28 Home Meds: Home Meds Escitalopram Oxalate [Lexapro] 20 mg PO DAILY 08/17/19 [History] LORazepam [Ativan] 2 mg PO ASDIRECTED PRN 08/17/19 [History] Zolpidem Tartrate [Ambien Cr] 1 tab PO ASDIRECTED 08/17/19 [History] Past Medical History - Past Health History Medical/Surgical History: Denies Medical/Surgical History HEENT History: Reports: None Other HEENT History: sore feeling on the throat from 3 days ago Cardiovascular History: Reports: None Respiratory History: Reports: None Gastrointestinal History: Reports: None Genitourinary History: Reports: None [employer] History: Reports: None Musculoskeletal History: Reports: None Neurological History: Reports: None Psychiatric History: Reports: None Endocrine/Metabolic History: Reports: None Hematologic History: Reports: None Immunologic History: Reports: None Oncologic (Cancer) History: Reports: None Dermatologic History: Reports: None - Infectious Disease History Infectious Disease History: Reports: None - Past Surgical History Head Surgeries/Procedures: Reports: None HEENT Surgical History: Reports: None Cardiovascular Surgical History: Reports: None Respiratory Surgical History: Reports: None GI Surgical History: Reports: None Female Surgical History: Reports: None Endocrine Surgical History: Reports: None Neurological Surgical History: Reports: None Musculoskeletal Surgical History: Reports: None Oncologic Surgical History: Reports: None Dermatological Surgical History: Reports: None Social & Family History - Family History Family Medical History: Noncontributory - Tobacco Use Smoking Status *Q: Current Every Day Smoker Years of Tobacco use: 10 Packs/Tins Daily: 0.5 - Caffeine Use Caffeine Use: Reports: Coffee, Energy Drinks, Soda, Tea - Recreational Drug Use Recreational Drug Use: No ED ROS GENERAL - Review of Systems Review Of Systems: See Below ED EXAM, GENERAL - Physical Exam Exam: See Below Course - Vital Signs Last Recorded V/S: Last Vital Signs Temp 96.1 F 08/17/19 08:29 Pulse 107 H 08/17/19 08:29 Resp 18 08/17/19 08:29 BP 122/86 08/17/19 08:29 Pulse Ox 98 08/17/19 08:29 - Orders/Labs/Meds Orders: Active Orders 24 hr Category Date Time Status RT Aerosol Therapy [RC] ASDIRECTED Care 08/17/19 08:35 Active Chest 1V Frontal [CR] Stat Exams 08/17/19 08:35 Taken Labs: Laboratory Tests 08/17/19 Range/Units 08:40 Urine HCG, Qual NEGATIVE (NEGATIVE) Meds: Medications Discontinued Medications Generic Name Dose Route Start Last Admin Trade Name Frejuan PRN Reason Stop Dose Admin Albuterol/Ipratropium 3 ml 08/17/19 08:35 08/17/19 08:45 Duoneb 3.0-0.5 Mg/3 Ml NEB 08/17/19 08:36 3 ml ONETIME ONE Administration Methylprednisolone Sodium Succinate 125 mg 08/17/19 09:04 08/17/19 09:12 Solu-Medrol IM 08/17/19 09:05 125 mg ONETIME ONE Administration Departure - Departure Time of Disposition: 09:44 Disposition: Home, Self-Care 01 Condition: Good Clinical Impression: Bronchitis - Discharge Information Referrals: PCP,Unknown [Primary Care Provider] - Forms: ED Department Discharge Additional Instructions: The following information is given to patients seen in the emergency department who are being discharged to home. This information is to outline your options for follow-up care. We provide all patients seen in our emergency department with a follow-up referral. The need for follow-up, as well as the timing and circumstances, are variable depending upon the specifics of your emergency department visit. If you don't have a primary care physician on staff, we will provide you with a referral. We always advise you to contact your personal physician following an emergency department visit to inform them of the circumstance of the visit and for follow-up with them and/or the need for any referrals to a consulting specialist. The emergency department will also refer you to a specialist when appropriate. This referral assures that you have the opportunity for follow-up care with a specialist. All of these measure are taken in an effort to provide you with optimal care, which includes your follow-up. Under all circumstances we always encourage you to contact your private physician who remains a resource for coordinating your care. When calling for follow-up care, please make the office aware that this follow-up is from your recent emergency room visit. If for any reason you are refused follow-up, please contact the [facility] emergency department at and asked to speak to the emergency department charge nurse. Sepsis Event Note - Evaluation Sepsis Screening Result: No Definite Risk - Focused Exam Vital Signs: Vital Signs Temp Pulse Resp BP Pulse Ox 08/17/19 08:29 96.1 F 107 H 18 122/86 98 Date Exam was Performed: 08/17/19 Time Exam was Performed: 09:43 - My Orders Last 24 Hours: My Active Orders 08/17/19 08:35 RT Aerosol Therapy [RC] ASDIRECTED Chest 1V Frontal [CR] Stat - Assessment/Plan Last 24 Hours: My Active Orders 08/17/19 08:35 RT Aerosol Therapy [RC] ASDIRECTED Chest 1V Frontal [CR] Stat
[2019-08-17] MEDS ORDERED: methylPREDNISolone Sodium Succinate 125 MG/2 ML SDV IM ONE (09:04)
[2019-08-17 09:57] VITALS: BP 127/94; PULSE 101
--- NOTE | 2019-08-17 10:14 | CR ---
Chest: Portable view of the chest was obtained. Comparison: Prior chest x-ray of 02/08/18. Heart size and mediastinum are normal. Lungs are clear with no acute parenchymal change. Bony structures are grossly intact. Impression: 1. Nothing acute is seen on portable chest x-ray. Diagnostic code #1 This report was dictated in [place] Standard Time
== END 2019-08-17 09:52 | disposition home or self-care (01) ==
LOC: MW.ED 08:26
DX: J40 Bronchitis, not specified as acute or chronic (principal); F17.210 Nicotine dependence, cigarettes, uncomplicated; Z91.018 Allergy to other foods; Z79.899 Other long term (current) drug therapy
CPT/HCPCS: 71045; 81025; 87804; 96372; 99285; J2930; 99283; J7620-GY